=== PATIENT | male | born 1995 | race Caucasian/White ===

== ENCOUNTER 2018-02-15 23:12 | Inpatient (IN) | payer MEDICAID ==
[2018-02-16 00:51] LABS: BASO # 0.1 K/uL (0.0-0.2); BASO % 0.5 % (0.0-2.0); HEMOGLOBIN 13.6 g/dL (12.0-18.0); LYMPH # 0.8 K/uL (1.0-4.3); LYMPH % 4.4 % (20.0-40.0); MEAN CORPUSCULAR HGB CONC 33.6 g/dL (33.0-37.0); MEAN PLATELET VOLUME 9.2 fl (7.2-11.7); MONO # 1.5 K/uL (0.0-0.8); MONO % 8.2 % (0.0-10.0); NEUT # 15.9 K/uL (1.8-7.0); NEUT % 86.9 % (50.0-75.0); PLATELET COUNT 167 K/uL (130-400); RBC 4.38 Mil/uL (4.40-5.90); RED CELL DISTRIBUTION WIDTH 13.2 % (11.5-14.5); WHITE BLOOD COUNT 18.3 K/uL (4.8-10.8)
[2018-02-16 01:02] LABS: ALB/GLOB RATIO 1.5 (1.0-2.1); ALBUMIN 4.5 g/dL (3.5-5.0); ALT/SGPT 29 U/L (21-72); AST/SGOT 35 U/L (17-59); BLOOD UREA NITROGEN 14 mg/dl (9-20); CALCIUM 9.5 mg/dL (8.4-10.2); GFR AFRICAN-AMERICAN > 60; GFR NON-AFRICAN AMERICAN > 60
--- NOTE | 2018-02-16 02:13 | ED PDOC ---
HPI: Psych/Substance Abuse Time Seen by Provider: 02/15/18 23:47 Chief Complaint (Nursing): Psychiatric Evaluation Chief Complaint (Provider): Psychiatric Evaluation ED Caveat: Altered Mental Status, Psychotic History Per: Patient Onset/Duration Of Symptoms: Mins (prior to arrival) Current Symptoms Are (Timing): Still Present Suicide/Self Injury Attempted (Context): None Additional Complaint(s): 22 year old male with a history of bipolar disorder and schizophrenia presents to the ED for a crisis evaluation. According to EMS, patient was behaving bizarrely at a local 02/13. Patient admits to not sleeping since yesterday. Otherwise, he offers no other medical complaints. PMD: none provided Past Medical History Reviewed: Historical Data, Nursing Documentation, Vital Signs Vital Signs: Last Vital Signs Temp 98.4 F 02/15/18 23:18 Pulse 121 H 02/15/18 23:18 Resp 20 02/15/18 23:18 BP 187/101 H 02/15/18 23:18 Pulse Ox 99 02/15/18 23:18 - Medical History PMH: Bipolar Disorder, Schizophrenia - Surgical History Surgical History: No Surg Hx - Family History Family History: States: Unknown Family Hx - Social History Current smoker - smoking cessation education provided: No Alcohol: None Drugs: Denies - Allergies Allergies/Adverse Reactions: Allergies Allergy/AdvReac Type Severity Reaction Status Date / Time No Known Allergies Allergy Verified 02/15/18 23:18 Review of Systems ROS Statement: Except As Marked, All Systems Reviewed And Found Negative Neurological: Positive for: Altered Mental Status Physical Exam - Reviewed Nursing Documentation Reviewed: Yes Vital Signs Reviewed: Yes - Physical Exam Appears: Positive for: Non-toxic, No Acute Distress Head Exam: Positive for: ATRAUMATIC, NORMAL INSPECTION, NORMOCEPHALIC Skin: Positive for: Warm (multiple patches of sunburn noted), Dry. Negative for : Normal Color Eye Exam: Positive for: EOMI, Normal appearance, PERRL Neck: Positive for: Normal, Painless ROM, Supple Cardiovascular/Chest: Positive for: Regular Rate, Rhythm. Negative for: Murmur Respiratory: Positive for: Normal Breath Sounds. Negative for: Respiratory Distress Extremity: Positive for: Normal ROM. Negative for: Deformity Neurologic/Psych: Positive for: Alert (somewhat; slow to answer), Mood/Affect ( flat), Other (refusing to engage with provider and requests to be discharged). Negative for: Motor/Sensory Deficits - Laboratory Results Result Diagrams: 02/16/18 07:30 02/16/18 00:45 - ECG O2 Sat by Pulse Oximetry: 99 Medical Decision Making Medical Decision Makin:26 Impression: 22 year old female here for crisis evaluation Initial Plan: --Etoh --CMP --CBC --UDS --Valproic acid --Accucheck --Crisis eval Time; 03:52 --Labs reviewed and are not clinically significant for abnormalities except a slightly elevated WBC, which is most likely stress related given you have not had a fever or chest x ray. --Patient will be admitted into Adult Psychiatry for management of schizophrenia. -- ---- Scribe Attestation: Documented by Salima Baires, acting as a scribe for Efren Hall MD Provider Scribe Attestation: All medical record entries made by the Scribe were at my direction and personally dictated by me. I have reviewed the chart and agree that the record accurately reflects my personal performance of the history, physical exam, medical decision making, and the department course for this patient. I have also personally directed, reviewed, and agree with the discharge instructions and disposition. Disposition - Clinical Impression Clinical Impression: Schizophrenia - Patient ED Disposition Is Patient to be Admitted: Yes - Disposition Disposition Time: 03:45 Condition: STABLE
[2018-02-16 03:25] LABS: BANDS 2 % (0-2); LYMPHOCYTE 7 % (20-50); MONOCYTE 7 % (0-10); NEUTROPHIL 84 % (42-75); PLATELET ESTIMATE NORMAL (NORMAL); TOTAL CELLS COUNTED 100
[2018-02-16 04:20] VITALS: O2SAT 99
[2018-02-16] MEDS ORDERED: DiphenhydrAMINE 50 mg/ml Inj IM PRN (05:21)
[2018-02-16] MEDS ORDERED: Alum-Mag Hydrox-Simethicone Susp (30 mL) PO PRN (05:21)
[2018-02-16] MEDS ORDERED: Magnesium Hydroxide Susp 30 ml UD PO PRN (05:21)
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
[2018-02-16 06:45] LABS: URINE BILIRUBIN NEGATIVE (NEGATIVE); URINE BLOOD NEGATIVE (NEGATIVE); URINE CLARITY CLEAR (Clear); URINE COLOR YELLOW (YELLOW); URINE GLUCOSE (UA) NEG (Normal); URINE LEUKOCYTE ESTERASE NEG Leu/uL (Negative); URINE PROTEIN NEGATIVE (NEGATIVE); URINE UROBILINOGEN 0.2-1.0 mg/dL (0.2-1.0)
[2018-02-16 06:54] LABS: BARBITURATES, UR NEGATIVE (NEGATIVE); BENZODIAZEPINES, UR NEGATIVE (NEGATIVE); OPIATES, UR NEGATIVE (NEGATIVE); PHENCYCLIDINE, UR NEGATIVE (NEGATIVE)
[2018-02-16 07:53] LABS: HEMOGLOBIN 13.4 g/dL (12.0-18.0); MEAN CELL VOLUME 90.8 fl (80.0-94.0); MEAN CORPUSCULAR HEMOGLOBIN 31.2 pg (27.0-31.0); MEAN CORPUSCULAR HGB CONC 34.4 g/dL (33.0-37.0); RBC 4.3 Mil/uL (4.40-5.90); RED CELL DISTRIBUTION WIDTH 13.2 % (11.5-14.5); WHITE BLOOD COUNT 14.1 K/uL (4.8-10.8)
[2018-02-16 08:24] LABS: T4 7.36 ug/dl (5.5-11.0)
--- NOTE | 2018-02-16 08:28 | RAD ---
Date of service: 02/16/2018 HISTORY: admit COMPARISON: No prior. FINDINGS: LUNGS: No active pulmonary disease. PLEURA: No significant pleural effusion identified, no pneumothorax apparent. CARDIOVASCULAR: Normal. OSSEOUS STRUCTURES: No significant abnormalities. VISUALIZED UPPER ABDOMEN: Normal. OTHER FINDINGS: None. IMPRESSION: No active disease.
--- NOTE | 2018-02-16 09:55 | PCM.PSYCH ---
Initial Psychiatric Evaluation - Initial Psychiatric Evaluation Type of Admission: Voluntary Legal Status: Capacity Chief Complaint (in patient's own words): "I'm depressed." Patient's Reaction to Hospitalization: HPI: 22 yo male w/ h/o Schizoaffective Disorder, presents w/ increasingly bizarre behavior/affect, poor sleep, paranoia, mood lability, periods of agitation, in the context of non-compliance w/ medications. He denies acute AH /VH, but was paranoid towards staff this morning and required PRN medications. He denies acute SI/HI. Patient is a limited historian at this time and answers , I don't know to many questions. PPHx: H/o 2 past psychiatric admissions. Not complaint w/ Depakote and Risperdal. PMHx: Denies acute medical issues ALL: NKDA FHx: Cousin completed suicide SHx: Denies drugs/ etoh/ smokes >1-2 cig/day Current Medications: Active Medications Generic Name Dose Route Start Last Admin Trade Name Freq PRN Reason Stop Dose Admin Acetaminophen 650 mg 02/16/18 05:21 Tylenol 325mg Tab PO Q4 PRN pain level 4-7 Al Hydrox/Mg Hydrox/Simethicone 30 ml 02/16/18 05:21 Maalox Plus 30 Ml PO Q4 PRN Dyspepsia Diphenhydramine HCl 50 mg 02/16/18 05:21 Benadryl IM Q6 PRN Extrapyramidal S/S Unable PO Diphenhydramine HCl 50 mg 02/16/18 05:21 02/16/18 06:12 Benadryl PO 50 mg Q6 PRN Administration Extrapyramidal Symptoms Diphenhydramine HCl 50 mg 02/16/18 05:25 Benadryl PO HS PRN Sleep Haloperidol 5 mg 02/16/18 05:21 02/16/18 06:12 Haldol PO 5 mg Q4 PRN Administration Agitation Haloperidol Lactate 5 mg 02/16/18 05:21 Haldol IM Q4 PRN Agitation, Unable to Take PO Lorazepam 1 mg 02/16/18 05:21 Ativan IM Q8 PRN Anxiety/Agitation,Unable PO Lorazepam 1 mg 02/16/18 05:21 Ativan PO Q8 PRN Anxiety/Agitation Magnesium Hydroxide 30 ml 02/16/18 05:21 Milk Of Magnesia PO HS PRN Constipation Past Psychiatric History - Past Psychiatric History Previous Treatment History: Inpatient Pertinent Medical Hx (Current Medical&Sleep Prob, Allergies): Allergies Allergy/AdvReac Type Severity Reaction Status Date / Time No Known Allergies Allergy Verified 02/15/18 23:18 Review of Systems - Psychiatric Psychiatric: As Per HPI, Abnormal Sleep Pattern, Change in Appetite, Depression , Difficulty Concentrating, Hopelessness, Irritability, Mood Swings, Paranoia Mental Status Examination - Personal Presentation Personal Presentation: Looks stated age - Affect Affect: Constricted - Motor Activity Motor Activity: Calm - Reliability in Providing Information Reliability in Providing Information: Poor, due to alteration in thoughts - Speech Speech: Coherent, Other (Poverty of speech) - Mood Mood: Depressed - Formal Thought Process Formal Thought Process: Paranoia - Hallucinations/Delusions Additional comments: No AH/VH/paranoia/delusions - Obsessions/Compulsions Obsessions: No Compulsions: No - Cognitive Functions Orientation: Person, Place, Situation, Time Sensorium: Drowsy Judgement: Imparied, as evidence by: Poor judgement, Imparied, as evidence by: Lack of insight into illness Memory: Recent intact, as evidence by: Ability to recall events of the day - Risk Risk: Diminished functioning - Strength & Assets Inventory Strength & Assets Inventory: Family support, Cooperative DSM 5 DX - DSM 5 DSM 5 Diagnosis: Schizoaffective Disorder - Recommended/Plan of Treatment Treatment Recommendations and Plan of Treatment: Schizoaffective Disorder -Admit to psychiatry unit -Individual and group therapy -Restart Depakote and Risperdal -Medicine consult -Nicotine patch -Disposition planning Projected ELOS: 7-14 days Discharge Plan and Discharge Criteria: Discharge when patient is psychiatrically stable - Smoking Cessation Smoking Cessation Initiated: Yes
[2018-02-16] MEDS: Divalproex 500 mg DR(BID formulation) PO SCH ×2 (13:30→18:15)
--- NOTE | 2018-02-16 14:44 | CP.PCM.CON ---
History of Present Illness - History of Present Illness History of Present Illness: Patient seen but refused to talk and refused examination. Past Patient History - Past Social History Alcohol: None Drugs: Denies - CARDIAC Hx Cardiac Disorders: No - PULMONARY Hx Respiratory Disorders: No - NEUROLOGICAL Hx Neurological Disorder: No - HEENT Hx HEENT Problems: No - RENAL Hx Chronic Kidney Disease: No - ENDOCRINE/METABOLIC Hx Endocrine Disorders: No - HEMATOLOGICAL/ONCOLOGICAL Hx Blood Disorders: No - INTEGUMENTARY Hx Dermatological Problems: No - MUSCULOSKELETAL/RHEUMATOLOGICAL Hx Musculoskeletal Disorders: No - GASTROINTESTINAL Hx Gastrointestinal Disorders: No - GENITOURINARY/GYNECOLOGICAL Hx Genitourinary Disorders: No - PSYCHIATRIC Hx Substance Use: No - SURGICAL HISTORY Hx Surgeries: No Other/Comment: Unable to obtain full medical history from pt. Not answering all questions. Meds Allergies/Adverse Reactions: Allergies Allergy/AdvReac Type Severity Reaction Status Date / Time No Known Allergies Allergy Verified 02/15/18 23:18 - Medications Medications: Current Medications Acetaminophen (Tylenol 325mg Tab) 650 mg PO Q4 PRN PRN Reason: pain level 4-7 Al Hydrox/Mg Hydrox/Simethicone (Maalox Plus 30 Ml) 30 ml PO Q4 PRN PRN Reason: Dyspepsia Diphenhydramine HCl (Benadryl) 50 mg IM Q6 PRN PRN Reason: Extrapyramidal S/S Unable PO Diphenhydramine HCl (Benadryl) 50 mg PO Q6 PRN PRN Reason: Extrapyramidal Symptoms Last Admin: 02/16/18 06:12 Dose: 50 mg Diphenhydramine HCl (Benadryl) 50 mg PO HS PRN PRN Reason: Sleep Divalproex Sodium (Depakote Dr(*Bid*)) 500 mg PO BID LAURENCE Last Admin: 02/16/18 13:30 Dose: Not Given Haloperidol (Haldol) 5 mg PO Q4 PRN PRN Reason: Agitation Last Admin: 02/16/18 06:12 Dose: 5 mg Haloperidol Lactate (Haldol) 5 mg IM Q4 PRN PRN Reason: Agitation, Unable to Take PO Lorazepam (Ativan) 1 mg IM Q8 PRN PRN Reason: Anxiety/Agitation,Unable PO Lorazepam (Ativan) 1 mg PO Q8 PRN PRN Reason: Anxiety/Agitation Magnesium Hydroxide (Milk Of Magnesia) 30 ml PO HS PRN PRN Reason: Constipation Nicotine (Nicoderm Cq) 1 patch TD DAILY LAURENCE Last Admin: 02/16/18 13:18 Dose: Not Given Risperidone (Risperdal Tab) 0.5 mg PO DAILY LAURENCE Last Admin: 02/16/18 13:18 Dose: Not Given Results - Vital Signs Recent Vital Signs: Last Vital Signs Temp 99.3 F 02/16/18 03:39 Pulse 103 H 02/16/18 06:14 Resp 18 02/16/18 06:14 BP 141/80 02/16/18 03:39 Pulse Ox 99 02/16/18 04:32 - Labs Result Diagrams: 02/16/18 07:30 02/16/18 00:45 Labs: Laboratory Results - last 24 hr 02/16/18 02/16/18 02/16/18 00:38 00:45 00:45 WBC 18.3 H RBC 4.38 L Hgb 13.6 Hct 40.3 MCV 92.0 MCH 31.0 MCHC 33.6 RDW 13.2 Plt Count 167 MPV 9.2 Neut % (Auto) 86.9 H Lymph % (Auto) 4.4 L [place] % (Auto) 8.2 Eos % (Auto) 0.0 Baso % (Auto) 0.5 Neut # (Auto) 15.9 H Lymph # (Auto) 0.8 L [place] # (Auto) 1.5 H Eos # (Auto) 0.0 Baso # (Auto) 0.1 Neutrophils % (Manual) 84 H Band Neutrophils % 2 Lymphocytes % (Manual) 7 L Monocytes % (Manual) 7 Platelet Estimate Normal Sodium 136 Potassium 3.6 Chloride 99 Carbon Dioxide 24 Anion Gap 17 BUN 14 Creatinine 0.7 L Est GFR ( Amer) > 60 Est GFR (Non-Af Amer) > 60 POC Glucose (mg/dL) 121 H Random Glucose 131 H Calcium 9.5 Total Bilirubin 1.2 AST 35 ALT 29 Alkaline Phosphatase 80 Total Protein 7.4 Albumin 4.5 Globulin 3.0 Albumin/Globulin Ratio 1.5 Triglycerides Cholesterol LDL Cholesterol Direct HDL Cholesterol Thyroxine (T4) TSH 3rd Generation Urine Color Urine Clarity Urine pH Ur Specific [place] Urine Protein Urine Glucose (UA) Urine Ketones Urine Blood Urine Nitrate Urine Bilirubin Urine Urobilinogen Ur Leukocyte Esterase Urine RBC (Auto) Urine Microscopic WBC Urine Opiates Screen Urine Methadone Screen Ur Barbiturates Screen Valproic Acid Ur Phencyclidine Scrn Ur Amphetamines Screen U Benzodiazepines Scrn U Oth Cocaine Metabols U Cannabinoids Screen Alcohol, Quantitative < 10 02/16/18 02/16/18 02/16/18 01:26 06:30 06:30 WBC RBC Hgb Hct MCV MCH MCHC RDW Plt Count MPV Neut % (Auto) Lymph % (Auto) [place] % (Auto) Eos % (Auto) Baso % (Auto) Neut # (Auto) Lymph # (Auto) [place] # (Auto) Eos # (Auto) Baso # (Auto) Neutrophils % (Manual) Band Neutrophils % Lymphocytes % (Manual) Monocytes % (Manual) Platelet Estimate Sodium Potassium Chloride Carbon Dioxide Anion Gap BUN Creatinine Est GFR ( Amer) Est GFR (Non-Af Amer) POC Glucose (mg/dL) Random Glucose Calcium Total Bilirubin AST ALT Alkaline Phosphatase Total Protein Albumin Globulin Albumin/Globulin Ratio Triglycerides Cholesterol LDL Cholesterol Direct HDL Cholesterol Thyroxine (T4) TSH 3rd Generation Urine Color Yellow Urine Clarity Clear Urine pH 6.0 Ur Specific [place] 1.015 Urine Protein Negative Urine Glucose (UA) Neg Urine Ketones Trace Urine Blood Negative Urine Nitrate Negative Urine Bilirubin Negative Urine Urobilinogen 0.2-1.0 Ur Leukocyte Esterase Neg Urine RBC (Auto) < 1 Urine Microscopic WBC 11 H Urine Opiates Screen Negative Urine Methadone Screen Negative Ur Barbiturates Screen Negative Valproic Acid < 10.0 L Ur Phencyclidine Scrn Negative Ur Amphetamines Screen Negative U Benzodiazepines Scrn Negative U Oth Cocaine Metabols Negative U Cannabinoids Screen Negative Alcohol, Quantitative 02/16/18 02/16/18 07:30 07:30 WBC 14.1 H RBC 4.30 L Hgb 13.4 Hct 39.1 MCV 90.8 MCH 31.2 H MCHC 34.4 RDW 13.2 Plt Count 168 MPV Neut % (Auto) Lymph % (Auto) [place] % (Auto) Eos % (Auto) Baso % (Auto) Neut # (Auto) Lymph # (Auto) [place] # (Auto) Eos # (Auto) Baso # (Auto) Neutrophils % (Manual) Band Neutrophils % Lymphocytes % (Manual) Monocytes % (Manual) Platelet Estimate Sodium Potassium Chloride Carbon Dioxide Anion Gap BUN Creatinine Est GFR ( Amer) Est GFR (Non-Af Amer) POC Glucose (mg/dL) Random Glucose Calcium Total Bilirubin AST ALT Alkaline Phosphatase Total Protein Albumin Globulin Albumin/Globulin Ratio Triglycerides 36 Cholesterol 107 LDL Cholesterol Direct 39 HDL Cholesterol 49 Thyroxine (T4) 7.36 TSH 3rd Generation 1.24 Urine Color Urine Clarity Urine pH Ur Specific [place] Urine Protein Urine Glucose (UA) Urine Ketones Urine Blood Urine Nitrate Urine Bilirubin Urine Urobilinogen Ur Leukocyte Esterase Urine RBC (Auto) Urine Microscopic WBC Urine Opiates Screen Urine Methadone Screen Ur Barbiturates Screen Valproic Acid Ur Phencyclidine Scrn Ur Amphetamines Screen U Benzodiazepines Scrn U Oth Cocaine Metabols U Cannabinoids Screen Alcohol, Quantitative
[2018-02-17 06:21] LABS: BASO % 0.5 % (0.0-2.0); EOS # 0.1 K/uL (0.0-0.7); EOS % 1.4 % (0.0-4.0); LYMPH # 1.4 K/uL (1.0-4.3); LYMPH % 16.7 % (20.0-40.0); MEAN CELL VOLUME 90.6 fl (80.0-94.0); MEAN CORPUSCULAR HEMOGLOBIN 31.5 pg (27.0-31.0); MEAN CORPUSCULAR HGB CONC 34.7 g/dL (33.0-37.0); MEAN PLATELET VOLUME 8.7 fl (7.2-11.7); MONO # 0.7 K/uL (0.0-0.8); MONO % 8.7 % (0.0-10.0); NEUT % 72.7 % (50.0-75.0); NRBC % 0.1 % (0.0-0.0); RBC 4.45 Mil/uL (4.40-5.90); RED CELL DISTRIBUTION WIDTH 12.9 % (11.5-14.5); WHITE BLOOD COUNT 8.2 K/uL (4.8-10.8)
[2018-02-17] MEDS: Divalproex 500 mg DR(BID formulation) PO SCH ×2 (09:18→17:44)
--- NOTE | 2018-02-17 17:30 | PCM.PYCHPN ---
Psychiatric Progress Note - Psychiatric Progress Note Patient seen today, length of contact: pt seen and evaluated Patient Chief Complaint: pt has remained internally preoccupied and paranoid getting intermitttently agitated and with poor insight and in need of further stabilization. Mental Status Examination - Cognitive Function Orientation: Person, Place, Situation, Time - Mood Mood: Depressed - Affect Affect: Constricted - Formal Thought Process Formal Thought Process: Paranoia - Homicidal Ideation Homicidal Ideation: No Goal/Treatment Plan - Goal/Treatment Plan Progress Toward Problem(s) and Goals/Treatment Plan: will increase risperdal to o.5 mg bid to stabilize the psychosis and engage pt in therapy and groups
[2018-02-18] MEDS: Divalproex 500 mg DR(BID formulation) PO SCH ×2 (10:18→17:34)
--- NOTE | 2018-02-18 11:52 | PCM.PYCHPN ---
Psychiatric Progress Note - Psychiatric Progress Note Patient seen today, length of contact: pt seen and evaluated Patient Chief Complaint: pt has remained internally preoccupied and paranoid getting intermitttently agitated and with poor insight and in need of further stabilization. Medication Change: Yes (increase risperdal 1 mg bid) Mental Status Examination - Cognitive Function Orientation: Person, Place, Situation, Time - Mood Mood: Depressed - Affect Affect: Constricted - Formal Thought Process Formal Thought Process: Paranoia - Homicidal Ideation Homicidal Ideation: No Goal/Treatment Plan - Goal/Treatment Plan Progress Toward Problem(s) and Goals/Treatment Plan: will increase risperdal to 1 mg bid to stabilize the psychosis and engage pt in therapy and groups
[2018-02-19] MEDS: Divalproex 500 mg DR(BID formulation) PO SCH ×2 (08:39→16:28)
--- NOTE | 2018-02-19 10:46 | PCM.PYCHPN ---
Psychiatric Progress Note - Psychiatric Progress Note Patient seen today, length of contact: pt seen and evaluated Patient Chief Complaint: pt has been less irritible and more verbal but has remained internally preoccupied and paranoid getting intermitttently agitated and with poor insight and in need of further stabilization. Medication Change: Yes (increase risperdal 1 mg bid) Mental Status Examination - Cognitive Function Orientation: Person, Place, Situation, Time - Mood Mood: Depressed - Affect Affect: Constricted - Formal Thought Process Formal Thought Process: Paranoia - Homicidal Ideation Homicidal Ideation: No Goal/Treatment Plan - Goal/Treatment Plan Progress Toward Problem(s) and Goals/Treatment Plan: will increase risperdal to 1 mg bid to stabilize the psychosis and engage pt in therapy and groups
[2018-02-20] MEDS: Divalproex 500 mg DR(BID formulation) PO SCH (08:50)
--- NOTE | 2018-02-20 16:18 | PCM.PYCHPN ---
Psychiatric Progress Note - Psychiatric Progress Note Patient seen today, length of contact: pt seen and evaluated Patient Chief Complaint: I want some papers Problems Identified/Issues Discussed: pt evaluated, presenting with disorganized speech and thought process, internally preoccupied observed responding to internal stimuli and laughing inappropriately, thought blocking, paranoid guarded, pt denied command hallucinations, denied suicidal or homicidal ideation, limited insight into illness'discussed with pt starting IM medications to ensure compliance, pt declined, dicussed changing risperidone to haldol DSM 5 Symptoms Update: schizophrenia Medication Change: Yes (start haldol) Medical Record Reviewed: Yes Mental Status Examination - Cognitive Function Orientation: Person, Place, Situation, Time Memory: Intact Attention: Poor Concentration: Poor Association: Loose Fund of Knowledge: Poor Decription of patient's judgement and insights: poor insight and judgment - Mood Mood: Depressed, Anxious - Affect Affect: Constricted - Speech Additional comments: disorganized - Formal Thought Process Formal Thought Process: Delusions, Paranoia, Loosening of associations, Thought Broadcasting - Suicidal Ideation Suicidal Ideation: No - Homicidal Ideation Homicidal Ideation: No Goal/Treatment Plan - Goal/Treatment Plan Need for Continued Stay: Discharge may exacerbated symptoms, Failed transitioning, Severe functional impairment Progress Toward Problem(s) and Goals/Treatment Plan: discontinue risperidone start haldol 5mg bid and cogentin 0.5mg bid and increase gradually group and supportive therapy
[2018-02-20] MEDS ORDERED: Risperidone M TAB 2 MG PO SCH (17:00)
[2018-02-20] MEDS: Divalproex 500 mg ER (ONCE DAILY formulation) PO SCH (21:16)
--- NOTE | 2018-02-21 15:38 | PCM.PYCHPN ---
Psychiatric Progress Note - Psychiatric Progress Note Patient seen today, length of contact: pt seen and evaluated Patient Chief Complaint: I am taking too many pills Problems Identified/Issues Discussed: pt evaluated,continues to floridly psychotic, with disorganized behavior, internally preoccupied , observed responding to internal stimuli, paranoid towards staff and other patients, limited insight into illness, needs lot of encouragement to take medications, discussed with pt stating depot injection to ensure compliance, he declined, no reported side effects, denied command hallucinations denied active suicidal plan r intent DSM 5 Symptoms Update: schizophrenia Medication Change: Yes (increase haldol) Medical Record Reviewed: Yes Mental Status Examination - Cognitive Function Orientation: Person, Place, Situation, Time Memory: Intact Attention: Poor Concentration: Poor Association: Loose Fund of Knowledge: Poor Decription of patient's judgement and insights: poor insight and judgment - Mood Mood: Depressed, Anxious - Affect Affect: Constricted - Formal Thought Process Formal Thought Process: Delusions, Paranoia, Loosening of associations, Thought Broadcasting - Suicidal Ideation Suicidal Ideation: No - Homicidal Ideation Homicidal Ideation: No Goal/Treatment Plan - Goal/Treatment Plan Need for Continued Stay: Discharge may exacerbated symptoms, Failed transitioning, Severe functional impairment Progress Toward Problem(s) and Goals/Treatment Plan: increase haldol 5mg tid and cogentin 0.5mg tid and increase gradually group and supportive therapy
[2018-02-21] MEDS: Divalproex 500 mg ER (ONCE DAILY formulation) PO SCH (21:10)
[2018-02-22] MEDS ORDERED: risperiDONE Consta 25mg/2ml Syringe IM ONE (12:14)
--- NOTE | 2018-02-22 14:50 | PCM.PYCHPN ---
Psychiatric Progress Note - Psychiatric Progress Note Patient seen today, length of contact: pt seen and evaluated Patient Chief Complaint: I will take the injection Problems Identified/Issues Discussed: pt evaluated,continues to floridly psychotic, laughing inappropriately , with disorganized behavior, internally preoccupied , observed responding to internal stimuli, paranoid towards staff and other patients, limited insight into illness , needs lot of encouragement to take medications, discussed with pt stating depot injection to ensure compliance, pt agreed to be started on risperidone consta , no reported side effects, denied command hallucinations denied active suicidal plan r intent DSM 5 Symptoms Update: schizoaffective disorder Medication Change: Yes (start risperidone consta ) Medical Record Reviewed: Yes Mental Status Examination - Cognitive Function Orientation: Person, Place, Situation, Time Memory: Intact Attention: Poor Concentration: Poor Association: Loose Fund of Knowledge: Poor Decription of patient's judgement and insights: poor insight and judgment - Mood Mood: Depressed, Anxious - Affect Affect: Constricted - Formal Thought Process Formal Thought Process: Delusions, Paranoia, Loosening of associations, Thought Broadcasting - Suicidal Ideation Suicidal Ideation: No - Homicidal Ideation Homicidal Ideation: No Goal/Treatment Plan - Goal/Treatment Plan Need for Continued Stay: Discharge may exacerbated symptoms, Failed transitioning, Severe functional impairment Progress Toward Problem(s) and Goals/Treatment Plan: haldol 5mg tid and cogentin 0.5mg tid risperidone consta 25mg im first dose today group and supportive therapy
[2018-02-22] MEDS: Divalproex 500 mg ER (ONCE DAILY formulation) PO SCH (21:49)
--- NOTE | 2018-02-23 09:10 | PCM.PYCHPN ---
Psychiatric Progress Note - Psychiatric Progress Note Patient seen today, length of contact: pt seen and evaluated Patient Chief Complaint: pt has been less seclusive and more verbal but has remained internally preoccupied and paranoid getting intermitttently agitated and with poor insight and in need of further stabilization.pt is tolerating risperdal consta well and no side effects reported Medication Change: Yes (start risperidone consta ) Medical Record Reviewed: Yes Mental Status Examination - Cognitive Function Orientation: Person, Place, Situation, Time Memory: Intact Attention: Poor Concentration: Poor Association: Loose Fund of Knowledge: Poor - Mood Mood: Depressed, Anxious - Affect Affect: Constricted - Formal Thought Process Formal Thought Process: Delusions, Paranoia, Loosening of associations, Thought Broadcasting - Suicidal Ideation Suicidal Ideation: No - Homicidal Ideation Homicidal Ideation: No Goal/Treatment Plan - Goal/Treatment Plan Need for Continued Stay: Discharge may exacerbated symptoms, Failed transitioning, Severe functional impairment Progress Toward Problem(s) and Goals/Treatment Plan: will continue risperdal consta and titrate to stabilize the psychosis and engage pt in therapy and groups Disposition planning as per dr liu
[2018-02-23] MEDS: Divalproex 500 mg ER (ONCE DAILY formulation) PO SCH (21:16)
--- NOTE | 2018-02-24 12:32 | PCM.PYCHPN ---
Psychiatric Progress Note - Psychiatric Progress Note Patient seen today, length of contact: pt seen and evaluated Patient Chief Complaint: pt has been more paranoid today and refusing his meds and today he is too seclusive and less verbal but has remained internally preoccupied and paranoid getting intermitttently agitated and with poor insight and in need of further stabilization.pt is tolerating risperdal consta well and no side effects reported Medication Change: Yes (start risperidone consta ) Medical Record Reviewed: Yes Mental Status Examination - Cognitive Function Orientation: Person, Place, Situation, Time Memory: Intact Attention: Poor Concentration: Poor Association: Loose Fund of Knowledge: Poor - Mood Mood: Depressed, Anxious - Affect Affect: Constricted - Formal Thought Process Formal Thought Process: Delusions, Paranoia, Loosening of associations, Thought Broadcasting - Suicidal Ideation Suicidal Ideation: No - Homicidal Ideation Homicidal Ideation: No Goal/Treatment Plan - Goal/Treatment Plan Need for Continued Stay: Discharge may exacerbated symptoms, Failed transitioning, Severe functional impairment Progress Toward Problem(s) and Goals/Treatment Plan: will continue risperdal consta and titrate to stabilize the psychosis and engage pt in therapy and groups Disposition planning as per dr liu
[2018-02-24] MEDS: Divalproex 500 mg ER (ONCE DAILY formulation) PO SCH (21:00)
--- NOTE | 2018-02-25 14:59 | PCM.PYCHPN ---
Psychiatric Progress Note - Psychiatric Progress Note Patient seen today, length of contact: pt seen and evaluated Patient Chief Complaint: I do not want medicine by mouth Problems Identified/Issues Discussed: pt evaluated,less disorganized, speech more productive and more goal directed, pt continues to be paranoid, with delusions of persecution, continues to have limited insight into illness, needs alot of encouragement to comply with medicine. pt denied command hallucinations, denied suicidal or homicidal ideation DSM 5 Symptoms Update: schizophrenia Medication Change: Yes (change haldol to risperidone) Medical Record Reviewed: Yes Mental Status Examination - Cognitive Function Orientation: Person, Place, Situation, Time Memory: Intact Attention: WNL Concentration: Poor Association: WNL Fund of Knowledge: Poor Decription of patient's judgement and insights: poor insight and judgment - Mood Mood: Depressed, Anxious - Affect Affect: Constricted - Speech Additional comments: underproductive - Formal Thought Process Formal Thought Process: Delusions, Paranoia, Loosening of associations Psychotic Thoughts and Behaviors: pt continues to be paranoid, denied command hallucinations - Suicidal Ideation Suicidal Ideation: No - Homicidal Ideation Homicidal Ideation: No Goal/Treatment Plan - Goal/Treatment Plan Need for Continued Stay: Discharge may exacerbated symptoms, Failed transitioning, Severe functional impairment Progress Toward Problem(s) and Goals/Treatment Plan: discontinue haldol, start risperidone 4mg bid , cogentin 0.5mg bid risperidone consta 25mg im first dose 02/22/18 group and supportive therapy
[2018-02-25] MEDS: Risperidone M TAB 2 MG PO SCH (17:35)
[2018-02-25] MEDS: Divalproex 500 mg ER (ONCE DAILY formulation) PO SCH (21:02)
[2018-02-26] MEDS: Risperidone M TAB 2 MG PO SCH ×2 (12:06→18:26)
--- NOTE | 2018-02-26 14:20 | PCM.PYCHPN ---
Psychiatric Progress Note - Psychiatric Progress Note Patient seen today, length of contact: pt seen and evaluated Patient Chief Complaint: I will take the injection only , when can I leave Problems Identified/Issues Discussed: pt evaluated, needs a lot of encouragement to be compliant with medications , requesting to be discharged thought process noted to be less disorganized, speech more productive and more goal directed, pt continues to be paranoid, with delusions of persecution, continues to have limited insight into illness, pt denied command hallucinations, denied suicidal or homicidal ideation, noted to have EPS with occasional tongue protrusion movements DSM 5 Symptoms Update: schizophrenia Medication Change: Yes (increase cogentin) Medical Record Reviewed: Yes Mental Status Examination - Cognitive Function Orientation: Person, Place, Situation, Time Memory: Intact Attention: WNL Concentration: Poor Association: WNL Fund of Knowledge: Poor Decription of patient's judgement and insights: poor insight and judgment - Mood Mood: Depressed, Anxious - Affect Affect: Constricted - Formal Thought Process Formal Thought Process: Delusions, Paranoia, Loosening of associations Psychotic Thoughts and Behaviors: pt continues to be paranoid, denied command hallucinations - Suicidal Ideation Suicidal Ideation: No - Homicidal Ideation Homicidal Ideation: No Goal/Treatment Plan - Goal/Treatment Plan Need for Continued Stay: Discharge may exacerbated symptoms, Failed transitioning, Severe functional impairment Progress Toward Problem(s) and Goals/Treatment Plan: risperidone 4mg bid , increase cogentin to 1mg bid risperidone consta 25mg im first dose 02/22/18, next dose to be 37.5mg follow up on liver function with the increase in depakote group and supportive therapy
[2018-02-26 15:40] LABS: HDL CHOLESTEROL 42 MG/DL (30-70)
[2018-02-26 15:51] LABS: LDL CHOLESTEROL 52 mg/dL (0-129)
[2018-02-26] MEDS: Divalproex 500 mg ER (ONCE DAILY formulation) PO SCH (21:05)
[2018-02-27 09:11] LABS: ALBUMIN 3.8 g/dL (3.5-5.0); BLOOD UREA NITROGEN 11 mg/dl (9-20); CALCIUM 9.1 mg/dL (8.4-10.2); GFR AFRICAN-AMERICAN > 60; GFR NON-AFRICAN AMERICAN > 60
[2018-02-27 09:12] LABS: ALB/GLOB RATIO 1.5 (1.0-2.1); ALT/SGPT 35 U/L (21-72); AST/SGOT 21 U/L (17-59)
[2018-02-27] MEDS: Divalproex 500 mg DR(BID formulation) PO SCH (09:45)
[2018-02-27] MEDS: Risperidone M TAB 2 MG PO SCH (09:45)
--- NOTE | 2018-02-27 15:24 | CARD ---
APPROVED REPORT Date of service: 02/27/2018 EKG Measurement Heart [id number] <Conclusion> Normal sinus rhythm Normal ECG
--- NOTE | 2018-02-27 15:31 | PCM.PYCHPN ---
Psychiatric Progress Note - Psychiatric Progress Note Patient seen today, length of contact: pt seen and evaluated Patient Chief Complaint: I will take the injection only , when can I leave Problems Identified/Issues Discussed: pt evaluatedWITH TREATMENT TEAM, PRESENTING WITH ANXIOUS MOOD AND AFFECT, LIMITED INSIGHT INTO ILLNESS, DISCHARGE FOCUSED, PT CONTINUES TO BE INTERNALLY PREOCCUPIED, WITH TYHOUGHT BLOCKING, APPEARS RESPONDING TO INTERNAL STIMULI pt denied command hallucinations, dicussed changing medications to haldol as there is only partial response with risperidone also discussed possible referral to [facility], pt agreed denied suicidal or homicidal ideation,needs encouragement to attend groups and to comply with medications DSM 5 Symptoms Update: schizoaffective disorder bipolar Medication Change: Yes (start haldol) Medical Record Reviewed: Yes Mental Status Examination - Cognitive Function Orientation: Person, Place, Situation, Time Memory: Intact Attention: WNL Concentration: Poor Association: WNL Fund of Knowledge: Poor Decription of patient's judgement and insights: poor insight and judgment - Mood Mood: Depressed, Anxious - Affect Affect: Constricted - Formal Thought Process Formal Thought Process: Delusions, Paranoia, Loosening of associations Psychotic Thoughts and Behaviors: pt continues to be paranoid, denied command hallucinations - Suicidal Ideation Suicidal Ideation: No - Homicidal Ideation Homicidal Ideation: No Goal/Treatment Plan - Goal/Treatment Plan Need for Continued Stay: Discharge may exacerbated symptoms, Failed transitioning, Severe functional impairment Progress Toward Problem(s) and Goals/Treatment Plan: discontinue risperidone 4mg bid , start haldol 5mg bid liver functions noted to be normal. continue with depakote, and follow up on depakote level group and supportive therapy rn social work will discuss treatment plan with family upon pt consent
[2018-02-27] MEDS: Divalproex 500 mg ER (ONCE DAILY formulation) PO SCH (21:07)
[2018-02-28] MEDS: Divalproex 500 mg DR(BID formulation) PO SCH (08:39)
--- NOTE | 2018-02-28 15:15 | PCM.PYCHPN ---
Psychiatric Progress Note - Psychiatric Progress Note Patient seen today, length of contact: pt seen and evaluated Patient Chief Complaint: I want to leave Problems Identified/Issues Discussed: pt on evaluation, with poor eye contact, noted to be increasingly paranoid. internally preoccupied, appears responding to internal stimuli, noted last evening by staff to be resistant to taking medications discussed with pt importance of medications compliance, EKG noted to be normal, discussed with pt starting haldol decanoate for partial response with risperidone, pt agreed. encouraged pt to attend groups, pt denied current suicidal or homicidal ideation, denied command hallucinations DSM 5 Symptoms Update: schizoaffective disorder Medication Change: Yes (start haldol) Medical Record Reviewed: Yes Mental Status Examination - Cognitive Function Orientation: Person, Place, Situation, Time Memory: Intact Attention: WNL Concentration: Poor Association: WNL Fund of Knowledge: Poor Decription of patient's judgement and insights: poor insight and judgment - Mood Mood: Depressed, Anxious - Affect Affect: Constricted - Formal Thought Process Formal Thought Process: Delusions, Paranoia, Loosening of associations Psychotic Thoughts and Behaviors: pt continues to be paranoid, denied command hallucinations - Suicidal Ideation Suicidal Ideation: No - Homicidal Ideation Homicidal Ideation: No Goal/Treatment Plan - Goal/Treatment Plan Need for Continued Stay: Discharge may exacerbated symptoms, Failed transitioning, Severe functional impairment Progress Toward Problem(s) and Goals/Treatment Plan: start haldol 5mg bid and 10mg qhs haldol decanoate 50mg im qmonth 1st dose 02/28/18 liver functions noted to be normal. continue with depakote, and follow up on depakote level group and supportive therapy social media marketing specialist will discuss treatment plan with family upon pt consent
[2018-02-28] MEDS: Divalproex 500 mg ER (ONCE DAILY formulation) PO SCH (21:20)
[2018-03-01] MEDS: Divalproex 500 mg DR(BID formulation) PO SCH (09:13)
--- NOTE | 2018-03-01 12:40 | PCM.PYCHPN ---
Psychiatric Progress Note - Psychiatric Progress Note Patient seen today, length of contact: pt seen and evaluated Patient Chief Complaint: when can I leave Problems Identified/Issues Discussed: pt on evaluation, floridly psychotic. pacing anxious , irritable requesting to be discharged, internally preoccupied, appears responding to internal stimuli pt has been refusing oral medications for past two days, needs a lot of encouragement to comply and attempts cheeking medication pt with limited insight into illness , continues to be disorganized , with poor response to treatment pt denied current suicidal or homicidal ideation, denied command hallucinations DSM 5 Symptoms Update: schizoaffective disorder Medication Change: Yes (increase haldol) Medical Record Reviewed: Yes Mental Status Examination - Cognitive Function Orientation: Person, Place, Situation, Time Memory: Intact Attention: WNL Concentration: Poor Association: WNL Fund of Knowledge: Poor Decription of patient's judgement and insights: poor insight and judgment - Mood Mood: Depressed, Anxious - Affect Affect: Constricted - Formal Thought Process Formal Thought Process: Delusions, Paranoia, Loosening of associations Psychotic Thoughts and Behaviors: pt continues to be paranoid, denied command hallucinations - Suicidal Ideation Suicidal Ideation: No - Homicidal Ideation Homicidal Ideation: No Goal/Treatment Plan - Goal/Treatment Plan Need for Continued Stay: Discharge may exacerbated symptoms, Failed transitioning, Severe functional impairment Progress Toward Problem(s) and Goals/Treatment Plan: increase haldol 7mg tid and cogentin 1mg tid haldol decanoate 50mg im qmonth 1st dose 02/28/18 continue with depakote, follow up on depakote level pt continues to be floridly psychotic , refusing medications, with partial compliance , requesting to be discharged pt will be referred for screening for involuntary admission as he continues to need medication stabilization
[2018-03-01] MEDS: Divalproex 500 mg ER (ONCE DAILY formulation) PO SCH (21:02)
[2018-03-02] MEDS: Divalproex 500 mg DR(BID formulation) PO SCH (09:26)
--- NOTE | 2018-03-02 12:06 | PCM.PYCHPN ---
Psychiatric Progress Note - Psychiatric Progress Note Patient seen today, length of contact: pt seen and evaluated Patient Chief Complaint: I WANT TO GET BETTER Problems Identified/Issues Discussed: pt evaluated , continues to present with anxious mood and affect, keen about being discharged with limited insight into illness, discussed with pt the need to continue with treatment to avoid rehospitalization, encouraged compliance with medications, pt agreed, reported increased drowziness, discussed shifting most of medications to night time to avoid daily sedation, also adding low dose of klonopin to help with anxiety pt denied current suicidal or homicidal ideation, denied command hallucinations DSM 5 Symptoms Update: schizoaffective disorder Medication Change: Yes (start klonopin) Medical Record Reviewed: Yes Mental Status Examination - Cognitive Function Orientation: Person, Place, Situation, Time Memory: Intact Attention: WNL Concentration: Poor Association: WNL Fund of Knowledge: Poor Decription of patient's judgement and insights: poor insight and judgment - Mood Mood: Depressed, Anxious - Affect Affect: Constricted - Formal Thought Process Formal Thought Process: Delusions, Paranoia, Loosening of associations Psychotic Thoughts and Behaviors: pt continues to be paranoid, denied command hallucinations - Suicidal Ideation Suicidal Ideation: No - Homicidal Ideation Homicidal Ideation: No Goal/Treatment Plan - Goal/Treatment Plan Need for Continued Stay: Discharge may exacerbated symptoms, Failed transitioning, Severe functional impairment Progress Toward Problem(s) and Goals/Treatment Plan: change haldol to 5mg daily and 15mg qhs , cogentin 1mg qhs haldol decanoate 50mg im qmonth 1st dose 02/28/18 continue with depakote, follow up on depakote level klonopin 0.25mg tid group and supportive therapy
[2018-03-02] MEDS: Divalproex 500 mg ER (ONCE DAILY formulation) PO SCH (21:15)
[2018-03-03] MEDS: Divalproex 500 mg DR(BID formulation) PO SCH (10:34)
--- NOTE | 2018-03-03 12:39 | PCM.PYCHPN ---
Psychiatric Progress Note - Psychiatric Progress Note Patient seen today, length of contact: pt seen and evaluated Patient Chief Complaint: I feel better today Problems Identified/Issues Discussed: pt evaluated ,more cooperative with the interview, less anxious, speech more productive, continues to have episodes of thought blocking, denied any current perceptual disturbances, less isolative , less disorganized, reported sedation with klonopin, will discontinue , encouraged compliance with rest of medications pt denied current suicidal or homicidal ideation, denied command hallucinations DSM 5 Symptoms Update: schizoaffective disorder bipolar Medication Change: Yes (discontinue klonopin) Medical Record Reviewed: Yes Mental Status Examination - Cognitive Function Orientation: Person, Place, Situation, Time Memory: Intact Attention: WNL Concentration: Poor Association: WNL Fund of Knowledge: Poor Decription of patient's judgement and insights: poor insight and judgment - Mood Mood: Depressed, Anxious - Affect Affect: Constricted - Formal Thought Process Formal Thought Process: Delusions, Paranoia, Loosening of associations Psychotic Thoughts and Behaviors: pt continues to be paranoid, denied command hallucinations - Suicidal Ideation Suicidal Ideation: No - Homicidal Ideation Homicidal Ideation: No Goal/Treatment Plan - Goal/Treatment Plan Need for Continued Stay: Discharge may exacerbated symptoms, Failed transitioning, Severe functional impairment Progress Toward Problem(s) and Goals/Treatment Plan: haldol to 5mg daily and 15mg qhs , cogentin 1mg qhs haldol decanoate 50mg im qmonth 1st dose 02/28/18 continue with depakote, 1500mg daily, depakote level noted 70 discontinue klonopin 0.25mg tid group and supportive therapy
[2018-03-03] MEDS: Divalproex 500 mg ER (ONCE DAILY formulation) PO SCH (21:06)
[2018-03-04] MEDS: Divalproex 500 mg DR(BID formulation) PO SCH (09:57)
--- NOTE | 2018-03-04 15:02 | PCM.PYCHPN ---
Psychiatric Progress Note - Psychiatric Progress Note Patient seen today, length of contact: pt seen and evaluated Patient Chief Complaint: I want to go home Problems Identified/Issues Discussed: pt evaluated ,more visible on unit, more interactive with other patients and staff, less paranoid , speech more productive , continues to need lotof encouragement to comply with medications, denied side effects discussed with patient linkage to [facility] , he agreed , administrator social welfare to arrange for a meeting prior to discharge pt denied current suicidal or homicidal ideation, denied command hallucinations DSM 5 Symptoms Update: schizoaffective disorder bipolar Medication Change: No Medical Record Reviewed: Yes Mental Status Examination - Cognitive Function Orientation: Person, Place, Situation, Time Memory: Intact Attention: WNL Concentration: Poor Association: WNL Fund of Knowledge: Poor Decription of patient's judgement and insights: poor insight and judgment - Mood Mood: Depressed, Anxious - Affect Affect: Constricted - Speech Speech: Soft - Formal Thought Process Formal Thought Process: Delusions, Paranoia, Loosening of associations Psychotic Thoughts and Behaviors: pt less paranoid, denied command hallucinations - Suicidal Ideation Suicidal Ideation: No - Homicidal Ideation Homicidal Ideation: No Goal/Treatment Plan - Goal/Treatment Plan Need for Continued Stay: Discharge may exacerbated symptoms, Failed transitioning, Severe functional impairment Progress Toward Problem(s) and Goals/Treatment Plan: haldol to 5mg daily and 15mg qhs , cogentin 1mg qhs haldol decanoate 50mg im qmonth 1st dose 02/28/18 continue with depakote, 1500mg daily, depakote level noted 70 arrange meeting with [facility] group and supportive therapy
[2018-03-04] MEDS: Divalproex 500 mg ER (ONCE DAILY formulation) PO SCH (21:15)
[2018-03-05] MEDS: Divalproex 500 mg DR(BID formulation) PO SCH (09:38)
--- NOTE | 2018-03-05 12:56 | PCM.PYCHPN ---
Psychiatric Progress Note - Psychiatric Progress Note Patient seen today, length of contact: pt seen and evaluated Patient Chief Complaint: I want to leave Problems Identified/Issues Discussed: pt evaluated ,less guarded and less paranoid, needs alot of encouragement for compliance with oral medications, continues to have limited insight into illness , discussed with pt referral to [facility] to ensure social support and compliance with treatment on discharge, pt agreed , encouraged to attaend groups, pt denied any current command hallucinations pt denied current suicidal or homicidal ideation, DSM 5 Symptoms Update: schizoaffective disorder bipolar Medication Change: No Medical Record Reviewed: Yes Mental Status Examination - Cognitive Function Orientation: Person, Place, Situation, Time Memory: Intact Attention: WNL Concentration: Poor Association: WNL Fund of Knowledge: Poor Decription of patient's judgement and insights: poor insight and judgment - Mood Mood: Depressed, Anxious - Affect Affect: Constricted - Speech Speech: Soft - Formal Thought Process Formal Thought Process: Delusions, Paranoia, Loosening of associations Psychotic Thoughts and Behaviors: pt less paranoid, denied command hallucinations - Suicidal Ideation Suicidal Ideation: No - Homicidal Ideation Homicidal Ideation: No Goal/Treatment Plan - Goal/Treatment Plan Need for Continued Stay: Discharge may exacerbated symptoms, Failed transitioning, Severe functional impairment Progress Toward Problem(s) and Goals/Treatment Plan: haldol 5mg daily and 15mg qhs , cogentin 1mg qhs haldol decanoate 50mg im qmonth 1st dose 02/28/18 continue with depakote, 1500mg daily, depakote level noted 70 arrange meeting with ICMS group and supportive therapy
[2018-03-05] MEDS: Divalproex 500 mg ER (ONCE DAILY formulation) PO SCH (21:25)
[2018-03-06] MEDS: Divalproex 500 mg DR(BID formulation) PO SCH (08:48)
[2018-03-06 09:05] VITALS: RESP 18
--- NOTE | 2018-03-06 15:00 | PCM.PYCHPN ---
Psychiatric Progress Note - Psychiatric Progress Note Patient seen today, length of contact: pt seen and evaluated Patient Chief Complaint: I am feeling better Problems Identified/Issues Discussed: pt evaluated with treatment team, less disorganized , continues to be guarded with under productive speech but more compliant with treatment , pt does not appear internally preoccupied , denied command hallucinations , pt agreed to be linked to [facility]MS prior to discharge pt denied current suicidal or homicidal ideation, DSM 5 Symptoms Update: schizoaffective disorder bipolar Medication Change: No Medical Record Reviewed: Yes Mental Status Examination - Cognitive Function Orientation: Person, Place, Situation, Time Memory: Intact Attention: WNL Concentration: Poor Association: WNL Fund of Knowledge: Poor Decription of patient's judgement and insights: poor insight and judgment - Mood Mood: Depressed, Anxious - Affect Affect: Constricted - Speech Speech: Soft - Formal Thought Process Formal Thought Process: Paranoia Psychotic Thoughts and Behaviors: pt less paranoid, denied command hallucinations - Suicidal Ideation Suicidal Ideation: No - Homicidal Ideation Homicidal Ideation: No Goal/Treatment Plan - Goal/Treatment Plan Need for Continued Stay: Discharge may exacerbated symptoms, Failed transitioning, Severe functional impairment Progress Toward Problem(s) and Goals/Treatment Plan: haldol 5mg daily and 15mg qhs , cogentin 1mg qhs haldol decanoate 50mg im qmonth 1st dose 02/28/18 continue with depakote, 1500mg daily, depakote level noted 70 arrange meeting with [facility] group and supportive therapy
[2018-03-06] MEDS: Divalproex 500 mg ER (ONCE DAILY formulation) PO SCH (21:09)
[2018-03-07] MEDS: Divalproex 500 mg DR(BID formulation) PO SCH (08:45)
--- NOTE | 2018-03-07 15:30 | PCM.PYCHPN ---
Psychiatric Progress Note - Psychiatric Progress Note Patient seen today, length of contact: pt seen and evaluated Patient Chief Complaint: I am feeling better Problems Identified/Issues Discussed: pt evaluated , pt had meeting today with ICMS worker, agrees to continue with outpatient treatment and to comply with medications, less disorganized , , pt does not appear internally preoccupied , denied command hallucinations , pt denied current suicidal or homicidal ideation, DSM 5 Symptoms Update: schizoaffective disorder Medication Change: No Medical Record Reviewed: Yes Mental Status Examination - Cognitive Function Orientation: Person, Place, Situation, Time Memory: Intact Attention: WNL Concentration: Poor Association: WNL Fund of Knowledge: Poor Decription of patient's judgement and insights: poor insight and judgment - Mood Mood: Anxious - Affect Affect: Constricted - Speech Speech: Soft - Formal Thought Process Formal Thought Process: Paranoia Psychotic Thoughts and Behaviors: pt less paranoid, denied command hallucinations - Suicidal Ideation Suicidal Ideation: No - Homicidal Ideation Homicidal Ideation: No Goal/Treatment Plan - Goal/Treatment Plan Need for Continued Stay: Discharge may exacerbated symptoms, Failed transitioning, Severe functional impairment Progress Toward Problem(s) and Goals/Treatment Plan: haldol 5mg daily and 15mg qhs , cogentin 1mg qhs haldol decanoate 50mg im qmonth 1st dose 02/28/18 continue with depakote, 1500mg daily, depakote level noted 70 group and supportive therapy
[2018-03-07] MEDS: Divalproex 500 mg ER (ONCE DAILY formulation) PO SCH (21:19)
[2018-03-08] MEDS: Divalproex 500 mg DR(BID formulation) PO SCH (09:43)
--- NOTE | 2018-03-08 14:05 | PCM.PYCHDC ---
Mental Status Examination - Mental Status Examination Orientation: Person, Place, Situation Memory: Intact Mood: Neutral Affect: Constricted Speech: Appropriate Attention: WNL Concentration: WNL Association: WNL Fund of Knowledge: Poor Formal Thought Process: Circumstantial Description of patient's judgement and insight: poor insight and judgment Psychotic Thoughts and Behaviors: pt on discharge denied perceptual disturbances, non elicited Suicidal Ideation: No Current Homicidal Ideation?: No Discharge Summary - Discharge Note Reason for Hospitalization: 22 yo male w/ h/o Schizoaffective Disorder, presents w/ increasingly bizarre behavior/affect, poor sleep, paranoia, mood lability, periods of agitation, in the context of non-compliance w/ medications. He denies acute AH/VH, but was paranoid towards staff this morning and required PRN medications. He denies acute SI/HI. Patient is a limited historian at this time and answers, I don't know to many questions. Consultations:: List each consultation separately and include: 1. Reason for request. 2. Findings. 3. Follow-up Summary of Hospital Course include:: 1. Description of specific treatment plan utilized for patients during their course of treatmen. 2. Summarize the time- course for resolution of acute symptoms and/or regressed behaviors. 3. Describe issues identified and worked on during hospitalization. 4. Describe medication utilized. 5. Describe medical problems identified and treated. 6. Reassessment of suicide risk Summary of Hospital Course: pt on admission was disorganized, paranoid as per staff and according to admission note by Dr Velazquez admitting psychiatrist was selectively mute pt was started on risperidone with poor response, through treatment pt was declining to take medications, signed 48 hour notice requesting discharge , pt was referred to [facility] to be screened for involuntary admission , yet pt was declined pt was encouraged to comply with medications risperidone was changed to haldol , it was uptitrated gradually and pt was started on haldol decanoate to ensure compliance , last dose 02/28/18 next dose due on 03/30/18 pt was also started on depakote for mood stabilization, it was increased to 1500 mg daily depakote level was noted 70and liver functions were normal ICMS team contacted and meeting arranged between pt and [facility] [employer] on 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 officer sergeant was to be contacted by social work msw to be informed about pt discharge family meeting was arranged by social work msw with family members pt on discharge, mental status was stable, denied any current suicidal or homicidal ideation, denied perceptual disturbances follow up arranged by social work msw at [facility] outpatient - Final Diagnosis (DSM 5) Condition upon Discharge: STABLE DSM 5: schizoaffective disorder bipolar type Disposition: HOME/ ROUTINE Prescriptions/Medication Reconciliation: Benztropine [Cogentin] 1 mg PO HS 30 Days #30 tab Divalproex [Depakote DR(*BID*)] 500 mg PO DAILY 30 Days #30 tcp Divalproex [Depakote ER(ONCE DAILY)] 1,000 mg PO HS 30 Days #60 ter Haloperidol [Haldol] 5 mg PO DAILY 30 Days #30 tab Haloperidol [Haldol] 15 mg PO HS 30 Days #90 tab - Antipsychotic Medications Pt discharged on 2 or more routine antipsychotic medications: No
[2018-03-08 17:26] VITALS: BP 133/85; PULSE 79; TEMP 96.8
== END 2018-03-08 18:40 | disposition home or self-care (01) | DRG 430 ==
LOC: H.ER 23:12 → H.ERHOLD 02-16 03:52 → H.PSYCH 02-16 05:20
PROVIDERS: ADMIT Psychiatry & Neurology Psychiatry; ATTEND Psychiatry & Neurology Psychiatry
PROC: GZHZZZZ Group Psychotherapy (ICD-10-PCS; principal; 2018-02-16)
PROC: GZ58ZZZ Individual Psychotherapy, Cognitive-Behavioral (ICD-10-PCS; 2018-02-16)
DX: F25.0 Schizoaffective disorder, bipolar type (principal); F94.0 Selective mutism; Z91.14 Patient's other noncompliance with medication regimen; Z65.3 Problems related to other legal circumstances

== ENCOUNTER 2018-05-03 11:39 | Emergency (ER) | payer MEDICAID ==
[2018-05-03 11:42] VITALS: O2SAT 99
[2018-05-03 13:13] LABS: PHENCYCLIDINE, UR NEGATIVE (NEGATIVE)
[2018-05-03 13:14] LABS: BARBITURATES, UR NEGATIVE (NEGATIVE); BENZODIAZEPINES, UR NEGATIVE (NEGATIVE); OPIATES, UR NEGATIVE (NEGATIVE)
--- NOTE | 2018-05-03 14:14 | ED PDOC ---
Addendum entered and electronically signed by Elenita Linder RPA-C 05/04/18 17:15: Addendum Addendum: 05/04/18 17:13 Correction of physical exam: GENERAL APPEARANCE: Patient is awake, alert, oriented x 3, in no acute distress. Resting comfortably. SKIN: Warm, dry; (-) cyanosis ENMT: Mucous membranes moist. Airway patent: (-) stridor. NECK: Supple, FROM HEART AND CARDIOVASCULAR: (-) irregularity CHEST AND RESPIRATORY: (-) rales, (-) rhonchi, (-) wheezes; breath sounds equal. Respirations even and nonlabored. ABDOMEN: Soft, (-) distention, (-) tenderness, (-) guarding. NEURO AND PSYCH: Mental status as above. Affect: flat. Patient uncooperative with questioning. Pupils equal and reactive; EOMI; (-) facial asymmetry Utox: (+) cannabinoids. Accucheck: 83 Serum Alcohol< 10 Original Note: HPI: Psych/Substance Abuse Time Seen by Provider: 05/03/18 11:44 Chief Complaint (Nursing): Anxiety Chief Complaint (Provider): Anxiety History Per: Patient History/Exam Limitations: no limitations Onset/Duration Of Symptoms: Hrs (this morning) Current Symptoms Are (Timing): Still Present Associated Symptoms: Anxiety. denies: Suicidal Thoughts, Suicidal Plan Additional Complaint(s): Lonnie Krause is a 22 year old male, with a past medical history of bipolar disorder, depression and schizophrenia, who presents to the emergency department for evaluation of feeling anxious since waking up this morning. Patient denies any physical complaints and states "doesn't know how to take his medicines and only takes what his father gives him." He denies any hallucinations, suicidal or homicidal ideation. No further medical complaints. Of note, patient is a poor historian. PMD: None provided. Past Medical History Reviewed: Historical Data, Nursing Documentation, Vital Signs Vital Signs: Last Vital Signs Temp 97.7 F 05/03/18 11:41 Pulse 70 05/03/18 11:41 Resp 17 05/03/18 11:41 BP 128/66 05/03/18 11:41 Pulse Ox 99 05/03/18 11:41 - Medical History PMH: Bipolar Disorder, Depression, Schizophrenia Denies: Diabetes, Hepatitis, HIV, HTN, Chronic Kidney Disease, Seizures, Sexually Transmitted Disease - Surgical History Surgical History: No Surg Hx - Family History Family History: States: Unknown Family Hx - Social History Current smoker - smoking cessation education provided: Yes (Heavy smoker >10 cigarettes daily) Alcohol: Social Drugs: Cannabis - Home Medications Home Medications: Ambulatory Orders Medication Instructions Recorded Benztropine [Cogentin] 1 mg PO HS 30 Days #30 tab 03/08/18 Divalproex [Depakote DR(*BID*)] 500 mg PO DAILY 30 Days #30 tcp 03/08/18 Divalproex [Depakote ER(ONCE 1,000 mg PO HS 30 Days #60 ter 03/08/18 DAILY)] Haloperidol [Haldol] 5 mg PO DAILY 30 Days #30 tab 03/08/18 Haloperidol [Haldol] 15 mg PO HS 30 Days #90 tab 03/08/18 - Allergies Allergies/Adverse Reactions: Allergies Allergy/AdvReac Type Severity Reaction Status Date / Time No Known Allergies Allergy Verified 02/15/18 23:18 Review of Systems ROS Statement: Except As Marked, All Systems Reviewed And Found Negative Psych: Positive for: Anxiety. Negative for: Suicidal ideation (or homicidal ideation), Other (hallucinations ) Physical Exam - Reviewed Nursing Documentation Reviewed: Yes Vital Signs Reviewed: Yes - Physical Exam Comments: GENERAL APPEARANCE: Patient is awake, alert, oriented x 3, in no acute distress. SKIN: Warm, dry; (-) cyanosis HEAD: (-) scalp swelling, (-) scalp tenderness. EYES: (-) conjunctival pallor, (-) scleral icterus, (-) nystagmus. ENMT: Mucous membranes moist. Airway patent: (-) stridor. NECK: (-) tenderness, (-) stiffness, (-) lymphadenopathy. HEART AND CARDIOVASCULAR: (-) irregularity; (-) murmur, (-) gallop. CHEST AND RESPIRATORY: (-) rales, (-) rhonchi, (-) wheezes; breath sounds equal. ABDOMEN: Soft, (-) distention, (-) tenderness, (-) guarding. NEURO AND PSYCH: Mental status as above. Affect: flat, patient uncooperative with questioning. sales project manager: Intact. Pupils equal and reactive; EOMI; (-) facial asymmetry; tongue and uvula midline. Strength and DTRs symmetric. - ECG O2 Sat by Pulse Oximetry: 99 (RA) Pulse Ox Interpretation: Normal Medical Decision Making Medical Decision Making: Time: 11:44 Initial Impression: Anxiety Initial Plan: --Alcohol serum --Drug screen, urine --Glucose, POC --Accucheck --Reevaluation 14:12 -Patient evaluated by crisis, diagnosis of schizoaffective disorder per Dr. Velazquez. Patient advised to follow up with clinic today. Scribe Attestation: Documented by Chuckie Chowdhury, acting as a scribe for Elenita Linder PA-C. Provider Scribe Attestation: All medical record entries made by the Scribe were at my direction and personally dictated by me. I have reviewed the chart and agree that the record accurately reflects my personal performance of the history, physical exam, medical decision making, and the department course for this patient. I have also personally directed, reviewed, and agree with the discharge instructions and disposition. Disposition - Clinical Impression Clinical Impression: Schizoaffective disorder - Disposition Referrals: [facility] [Outside] Disposition: Routine/Home Disposition Time: 14:15 Condition: STABLE Additional Instructions: Follow up as directed by crisis. The emergency medical care you received today was directed towards your acute symptoms. If you were prescribed medication, please fill it at the pharmacy and take it as directed. It may take several days for your symptoms to resolve. Return to emergency department if your symptoms worsen, do not improve, or if you have any other problems. Please contact your doctor / referred provider / clinic in 2 days for further evaluation. The treatement in the emergency department cannot replace ongoing medical care by a primary doctor outside of the emergency department. Instructions: Schizoaffective Disorder Forms: [facility] (Pashto) Print Language: GREENLANDIC
[2018-05-03 14:19] VITALS: BP 122/70; PULSE 77; RESP 16; TEMP 97.9
== END 2018-05-03 14:19 | disposition home or self-care (01) ==
LOC: H.ER 11:39
DX: F25.9 Schizoaffective disorder, unspecified (principal); F31.9 Bipolar disorder, unspecified; F41.9 Anxiety disorder, unspecified